=== PATIENT | female | born 1970 | race Two or more races ===

== ENCOUNTER 2018-10-23 05:51 | Day surgery (SDC) | payer OTHER ==
[2018-10-23] VITALS (11 sets, daily range): BP systolic 101–139; BP diastolic 67–89
[~2018-10-23] VITALS: Ht 157.5 cm; Wt 78.0 kg
[2018-10-23] MEDS ORDERED: celeBREX 200mg Cap **SURGERY PATIENTS ONLY ORAL ONE (06:00)
[2018-10-23] MEDS ORDERED: ceFAZolin 1gm IVPB IVPB ONE ×2 (06:00)
[2018-10-23] MEDS ORDERED: Acetaminophen 500mg (ES) tab ORAL ONE (06:00)
[2018-10-23] MEDS ORDERED: oxyCONTIN 20mg tab ORAL ONE (06:00)
[2018-10-23] MEDS ORDERED: ZOLOFT25 MG ORAL (06:28)
[2018-10-23] MEDS ORDERED: EPINEPHrine 1mg/1ml Amp ONE (06:39)
[2018-10-23] MEDS ORDERED: Ropivacaine 5mg/ml Vial 30ml INJ ONE ×2 (06:39→06:43)
--- NOTE | 2018-10-23 06:41 | Immediate Post-Op Evaluation ---
Immediate Post-Op Evalulation Immediate Post-Op Evalulation Procedure: R Shoulder Arthroscopy, Rotator Cuff Repair Date of Evaluation: Oct 23, 2018 Time of Evaluation: 09:13 IV Fluids: 500 LR Blood Products: 0 Estimated Blood Loss: 10 Urinary Output: 0 Blood Pressure Systolic: 139 Blood Pressure Diastolic: 89 Pulse Rate: 96 Respiratory Rate: 16 O2 Sat by Pulse Oximetry: 98 Temperature (Fahrenheit): 97.6 Pain Score (1-10): 0 Nausea: No Vomiting: No Complications 0 Patient Status: awake, reacts, patent, none Hydration Status: adequate Dru Gram Ancef IV Given Within 1 Hr of Incision: Yes Time Given: 07:11 Yomi Wright MD Oct 23, 2018 06:41
[2018-10-23] MEDS ORDERED: Bupivacaine w/Epi 0.5% 30ml Vial INJ ONE (06:43)
[2018-10-23] MEDS ORDERED: Sodium Chloride 10ml vial INJ ONE (06:46)
[2018-10-23] MEDS ORDERED: Lidocaine 1% MPF 10mg/ml 5ml ONE (06:46)
[2018-10-23] MEDS ORDERED: Propofol 200mg/20ml IV ONE (06:46)
[2018-10-23] MEDS ORDERED: Dexamethasone 4mg/ml vial ONE (06:46)
--- NOTE | 2018-10-23 06:52 | Pre-Procedure Note/Attestation ---
Pre-Procedure Note/Attestation Complete Prior to Procedure Planned Procedure: right Procedure Narrative: rt shoulder scope, sad, mini isidra, resection of calcium deposit and RTC repair Indications for Procedure Pre-Operative Diagnosis: rt shoulder calcific tendonitis Attestation I attest that I discussed the nature of the procedure; its benefits; risks and complications; and alternatives (and the risks and benefits of such alternatives ), prior to the procedure, with the patient (or the patient's legal personal service representative). I attest that, if there was a reasonable possibility of needing a blood transfusion, the patient (or the patient's legal personal service representative) was given the [facility] standardized written summary, pursuant to the [place] Blood Safety Act ([place] Health and Safety Code # 1645, as amended). I attest that I re-evaluated the patient just prior to the surgery and that there has been no change in the patient's H&P, except as documented below: NONE Tavo Tejada MD Oct 23, 2018 06:52
[2018-10-23] MEDS ORDERED: HYDROmorphone 1mg/ml Carpuject SUBQ PRN (07:00)
[2018-10-23] MEDS ORDERED: D5 1/2NS 1,000 ML IV SCH (07:00)
[2018-10-23] MEDS ORDERED: Tylenol #3 tab (300mg/30mg) ORAL PRN (07:00)
[2018-10-23] MEDS ORDERED: HYDROcodone/Acetamin 5/325 tab ORAL PRN (07:00)
--- NOTE | 2018-10-23 07:02 | Anethesia Preoperative Eval ---
Anesthesia Pre-op PMH/ROS General Date of Evaluation: Oct 23, 2018 Anesthesiologist: Adriana ASA Score: ASA 2 Mallampati Score Class I : Soft palate, uvula, fauces, pillars visible Class II: Soft palate, uvula, fauces visible Class III: Soft palate, base of uvula visible Class IV: Only hard plate visible Mallampati Classification: Class II Surgeon: Mallory Diagnosis: R Shoulder Pain Surgical Procedure: R Shoulder Arthroscopy, Rotator Cuff Repair Anesthesia History: none Family History: no anesthesia problems Allergies: Coded Allergies: BACITRACIN (Verified Allergy, Intermediate, 10/23/18) SKIN RASH NEOMYCIN (Verified Allergy, Intermediate, 10/23/18) SKIN RASH POLYMYXIN B (Verified Allergy, Intermediate, 10/23/18) SKIN RASH Medications: see eMAR Patient NPO?: Yes Past Medical History Neurologic/Psychiatric: Reports: depression/anxiety, other - Migranes Other: obesity - BMI 32 Anesthesia Pre-op Phys. Exam Physician Exam Last Vital Signs Date Time Temp Pulse Resp B/P (MAP) Pulse Ox O2 Delivery O2 Flow Rate FiO2 10/23/18 06:30 Room Air 10/23/18 06:30 96.9 82 20 128/84 96 Constitutional: NAD Neurologic: CN 2-12 intact Cardiovascular: RRR Respiratory: CTA Gastrointestinal: S/NT/ND Airway Exam Mallampati Score: Class II MO: full ROM: full Teeth: intact Anesthesia Pre-op A/P Labs Urine Test Test 10/23/18 06:15 Urine HCG, Qualitative Negative (NEGATIVE) Risk Assessment & Plan Assessment: ASA 2 Plan: GA, R Supraclavicular Block, SED Status Change Before Surgery: No Pre-Antibiotics Dru gram Ancef IV Given Within 1 Hr of Incision: Yes Time Given: 07:11 Yomi Wright MD Oct 23, 2018 07:02
[2018-10-23] MEDS ORDERED: NS Irrig 4000ml IRRIG ONE ×4 (07:16→08:33)
--- NOTE | 2018-10-23 07:35 | 48 Hour Post Anesthesia Eval ---
Post Anesthesia Evaluation Procedure: R Shoulder Arthroscopy, Rotator Cuff Repair Date of Evaluation: Oct 23, 2018 Time of Evaluation: 09:13 Blood Pressure Systolic: 134 0: 83 Pulse Rate: 78 Respiratory Rate: 18 Temperature (Fahrenheit): 98.2 O2 Sat by Pulse Oximetry: 97 Airway: patent Nausea: No Vomiting: No Pain Intensity: 0 Hydration Status: adequate Cardiopulmonary Status: Stable Mental Status/LOC: patient returned to baseline Follow-up Care/Observations: 0 Post-Anesthesia Complications: 0 Follow-up care needed: ready to discharge Yomi Wright MD Oct 23, 2018 07:35
--- NOTE | 2018-10-23 08:53 | Brief Operative Note ---
Immediate Post Operative Note Operative Note Chief Complaint: rt shoulder pain Pre-op Diagnosis: rt shoulder calcific tendonitis Procedure: rt shoulder scope, sad, mini isidra, resection of calcium deposit Post-op Diagnosis: same as pre-op Findings: consistent w/pre-op dx studies Surgeon: md messi Radio Engineer: lexi mayfield Anesthesiologist: md christie Anesthesia: general Specimen: none Complications: none Condition: stable Fluids: ns Estimated Blood Loss: minimal Drains: none Implant(s) used?: No Precious Mayfield Oct 23, 2018 08:53
--- NOTE | 2018-10-23 16:15 | Operative Note - Dictated ---
DATE OF OPERATION: 10/23/2018 PREOPERATIVE DIAGNOSES: 1. Right shoulder impingement. 2. Right shoulder calcific tendinitis. 3. Bone spur underneath the clavicle. POSTOPERATIVE DIAGNOSES: 1. Right shoulder subacromial impingement. 2. Right shoulder calcific tendinitis. 3. Right shoulder bone spur underneath the clavicle. PROCEDURE: 1. Right shoulder arthroscopy and extensive intraarticular shaving. 2. Right shoulder subacromial bursoscopy, bursectomy, subacromial decompression. 3. Right shoulder mini Pato procedure (resection of the 30% distended clavicle for coplaning). 4. Right shoulder resection of calcium deposit in the insertional portion of the supraspinatus with debridement of the rotator cuff. Calcium deposit measured 5 x 8 mm. SURGEON: Tavo Tejada M.D. CLINICAL RECRUITER: Hay Mehta Program Coordinator For [employer] was present during the actual operative portion of the case and was important and essential part of the operation. During the operation, the library serials assistant held and operated the arthroscopic camera for visualization, assisted by manipulating the arm to help with visualization, and helped with essential parts of the repair process as necessary such as operating surgical instruments under surgeon supervision, suture management, and wound closures. ANESTHESIOLOGIST: Yomi Wright M.D. ANESTHESIA: LMA anesthesia combined with interscalene block. EBL: Minimal. COMPLICATIONS: None. SURGICAL INDICATION: Patient is a 48-year old female who sustained the above injury to her shoulder. The patient was treated non-operative initially, but this did not alleviate the patients symptoms. Therefore, after discussing all non-surgical and surgical options, and discussing all foreseeable risk and benefits of surgery, the patient opted for surgical treatment as described above. PATIENT POSITIONING: Patient was brought to the operating room table and was placed on the operating room table. All pressure points were well padded. General anesthesia was induced and patient was then placed in the lateral decubitus position. All pressure points were well padded again and an axillary roll was placed. Patient shoulder was then prepped and draped in the usual sterile fashion. Time out was performed and the appropriate preoperative antibiotic was given by the anesthesiologist. EXAMINATION OF SHOULDER UNDER ANESTHESIA: The shoulder was examined under anesthesia with all muscles well relaxed. The shoulder was forward flexed, abducted and was placed through full range of external and internal rotation. The anterior, posterior, and inferior stability of the shoulder was checked. The exam revealed no evidence of adhesive capsulitis and no evidence of instability. PORTAL PLACEMENT: The posterior portal was established 2 cm inferior and 1 cm medial to the edge of the posterior acromion. 1 cm skin incision was made using an eleven blade and using the blunt obturator, the cannula was gently placed through the capsule. The midglenoid portal was established just lateral to the coracoid process under direct visualization. Direction of the cannula was first established using a spinal needle, and subsequently, the cannula was placed through the capsule with a blunt obturator. DIAGNOSTIC ARTHROSCOPY: The biceps tendon was probed and pulled through the joint for visualization. It appeared normal. The biceps anchor was palpated with a probe and was visualized. It appeared well attached and there was no evidence of SLAP tear. The posterior labrum and axillary recess was visualized. This was normal and there was no evidence of loose cartilage or fragments in this area. The glenoid articular surface was visualized and it appeared normal. The articular surface of the rotator cuff was visualized and probed next. There was no evidence of articular sided rotator cuff tear extending from the supraspinatus back to the posterior cuff. The Humeral head articular surface was then visualized. There was no evidence of articular cartilage damage. Next the anterior labrum, middle gleno-humeral ligament, subscapularis tendon, and the anterior inferior gleno-humeral ligament were evaluated. These structures were completely normal. At this point, the scope was moved to the midglenoid portal and the posterior structures including the posterior labrum, posterior capsule and posterior cuff were visualized. These structures were completely normal. The subscapularis recess was devoid of any loose bodies and the anterior capsule was well attached to the humeral neck. The middle and anterior inferior glenohumeral ligament was visualized. These structures were completely normal. OPERATIVE DEBRIDEMENTS AND REPAIR: Care was given to all partial thickness tears and frayed structures in the shoulder joint. The frayed rotator cuff and labrum was debrided using a shaver initially through the anterior portal and subsequently through the posterior portal to complete the debridement. This allowed for smooth debridement of all affected structures and all loose fragments were removed. DIAGNOSTIC BURSOSCOPY AND SUBACROMIAL DECOMPRESSION: The subacromial bursa was entered from the posterior portal. The anterior portal was established under the CA ligament using a switching stick. Subacromial arthroscopy was initiated. There was extensive bursitis and thickened and inflamed bursa tissue present. The CA ligament appeared to be scuffed and frayed. The shaver was placed through the anterior cannula and debridement of the hypertrophic bursa tissue was accomplished. Once visualization was adequate, a lateral portal was established using a blunt trochar in the mid portion of the acromion bone in the anterior-posterior direction and approximately 2 cm lateral to the lateral edge of the acromion. Using combination of shaver and electrocautery the CA ligament was released from the undersurface of the acromion and a complete bursectomy was accomplished. At this point, a subacromial decompression was performed using a jose de jesus initially taking off 5-8 mm of the anterolateral edge of the acromion from the lateral portal and viewing from the posterior portal. Then the lateral border of the undersurface of the acromion was decompressed to the same dept as the anterolateral edge. A posterior trough was then created in the acromion in line with the posterior edge of the clavicle. At this point, the scope was placed in the lateral portal and the subacromial decompression was performed from the posterior portal decompressing the undersurface of the acromion to dept of 5-8 mm. The decompression was performed anterior to the previously marked trough all the way medially to the level of the AC joint. At all times, care was given not to take off too much bone in order to avoid risk of fracture of the acromion. An excellent subacromial decompression was performed in this fashion. At this point, the bursal side of the rotator cuff was examined. All the bursa over the rotator cuff was removed and the rotator cuff was examined with a probe. The arm was placed into external rotation, neutral, and then internal rotation and there was no evidence of rotator cuff tear, although there was an area of hyperemia where the calcium deposit was located. The scope was then placed in the posterior portal and the subacromial decompression was rechecked to assure there is no area of bone spur that would be still impinging onto the rotator cuff. EVALUATION OF DISTAL CLAVICLE AND DISTAL CLAVICLE RESECTION: Care was given to the distal end of the clavicle. Using electrocautery and clara, the distal end of the bursa and soft tissue around the distal end of the clavicle was debrided and cleaned. Care was given not to inflict excessive trauma to the ligaments of the AC joint. The distal end of the clavicle appeared to have an inferior osteophyte extending down well bellow the level of the acromion at the level of the AC joint. This appeared to be impinging onto the supraspinatus muscle belly and the musculotendinous junction of the rotator cuff. A mini-Pato procedure was performed by using a jose de jesus to resect the inferior 30% of the distal end of the clavicle. This decompression allowed space for the inferior structures to slide without impingement. This co-plained the inferior edge of the distal clavicle with the inferior edge of the acromion. At this point, using a spinal needle, the insertion of the supraspinatus around the hyperemic area was punctured. The 18-gauge spinal needle was used. After needling the area with 2 or 3 stabs, a chalky white calcium deposit could be seen ejecting out. Compression was performed with the end of the shaver and large amount of calcium deposit was resected in this fashion. The rotator cuff was opened by about 2 to 3 mm to allow this calcium deposit to extruded out. Once this was completed, the area was debrided. There was no detachment of the rotator cuff. No rotator cuff repair was necessary. The rotator cuff was debrided back to a stable zone. All calcium deposit was removed from the subacromial space. CONDITION AT DISCHARGE FROM OPERATING ROOM: The skin was re-approximated and sterile dressing and sling were applied. All lap counts and instrument counts were correct. Patient tolerated the procedure well without complications and was taken to the recovery room in stable conditions. Tavo Tejada M.D. DR: MICHAEL JOB#: [id number] CC:
== END 2018-10-23 11:30 | disposition home or self-care (01) ==
LOC: SUR 05:51
DX: M75.41 Impingement syndrome of right shoulder (principal); M75.31 Calcific tendinitis of right shoulder; M77.9 Enthesopathy, unspecified; F41.9 Anxiety disorder, unspecified; Z87.442 Personal history of urinary calculi; Z79.899 Other long term (current) drug therapy; Z88.8 Allergy status to other drugs, medicaments and biological substances; F32.9 Major depressive disorder, single episode, unspecified; E66.9 Obesity, unspecified; Z68.31 Body mass index [BMI] 31.0-31.9, adult
CPT/HCPCS: 29823; 29824; 81025; J0171; J0690; J1100; J2250; J2405; J2704; J2795; 94003; 94150